=== PATIENT | female | born 1995 | race Caucasian/White ===

== ENCOUNTER 2020-03-10 18:31 | Emergency (ER) | payer OTHER, SELFPAY ==
[2020-03-10 18:39] VITALS: BP 122/67; PULSE 78; RESP 17; TEMP 36.8; O2SAT 100; BMI 19.5
--- NOTE | 2020-03-10 18:44 | CT_ITS ---
PROCEDURE: CT ABDOMEN PELVIS W CON CLINICAL INDICATION: abd pain Constipation, generalized abdominal pain COMPARISON: No exams were available for comparison TECHNIQUE: IV Contrast: 75ML OPTIRAY 350 Oral Contrast None Axial images obtained with sagittal and coronal reformats. All CT scans at the facility use one or more dose reduction, viz: automated exposure control, ma/kV adjustment per patient size (including targeted exams where dose is matched to indication, i.e. head), or iterative reconstruction technique. FINDINGS: LOWER THORAX: Minimal nodular thickening noted within the left lower lobe anteriorly possibly due to some underlying scarring. Stability may be confirmed with follow-up. ABDOMEN & PELVIS: The liver, spleen, adrenal glands, pancreas, and gallbladder and kidneys have an unremarkable appearance. No intestinal obstruction or free air. Nonspecific nonobstructive bowel gas pattern. No evidence of appendicitis intestinal obstruction free air or diverticulitis. There is a small amount of free fluid in the cul-de-sac. Nondistended fluid-filled loops of small bowel are noted which are nonspecific. Multiple unopacified bowel loops in the abdomen or pelvis which could obscure or mimic pathology. If symptoms persist, consider repeat exam with IV and oral contrast. Irregular crenulated peripheral enhancing density noted in the left adnexa may be due to a ruptured cyst at 16 mm. There is a mild amount of retained colonic feces.. No acute bony anomaly. IMPRESSION: 1. Constipation. 2. Multiple unopacified bowel loops in the abdomen or pelvis which could obscure or mimic pathology. If symptoms persist, consider repeat exam with IV and oral contrast. 3. A left ovarian cyst with small amount fluid in cul-de-sac. Possibly related to ruptured cyst. Dictated by: Kurt Pena MD 03/11/2020 12:53 Kurt Pena MD in [place] 03/11/2020 12:53
--- NOTE | 2020-03-10 18:53 | [facility].EDGENADL ---
ED Disposition Clinical Impression: Abdominal spasms Abdominal pain Qualifiers: Abdominal location: epigastric Qualified Code(s): R10.13 - Epigastric pain Disposition: Still a Patient Condition on Discharge: Good Prescriptions: Dicyclomine HCl [Bentyl 10mg capsule] 10 mg PO QID PRN #20 cap PRN Reason: Cramping Transmission Status: Received by [facility] #[id number] Sennosides/Docusate Sodium [Docusate Sodium-Senna Tablet] 1 each PO DAILY #10 tab Transmission Status: Received by [facility] #[id number] polyethylene glycoL 3350 [Miralax 17gm Packet] 17 gm PO DAILYP PRN #30 packet PRN Reason: Constipation Transmission Status: Received by [facility] #[id number] Referrals: Rigoberto Adkins MD [Primary Care Provider] - - Critical Care Critical Care Time: No Attestation: On , the high probability of a clinically significant, sudden or life threatening deterioration of the following system(s) required my full and direct attention, intervention and personal management. The time I documented below is in addition to time spent performing reported procedures but includes the following listed in this critical care notation. Medical Decision Making - Medical Records Medical records reviewed: Yes: I reviewed the patient's medical records. - Lobo Inquiry Pt receiving controlled substance: No Vital Signs: 03/10/20 18:39 Temperature 98.2 F Temperature Source Oral Pulse Rate [Right Radial] 78 Respiratory Rate 17 Blood Pressure [Right Arm] 122/67 Blood Pressure Mean [Right Arm] 85 02 Sat by Pulse Oximetry 100 Oxygen Delivery Method Room Air - Lab Data Lab Results 03/10/20 18:48: WBC 8.9, RBC 4.37, Hgb 14.4, Hct 41.2, MCV 94.1, MCH 32.9 H, MCHC 34.9, RDW 12.8, Plt Count 263, MPV 7.4, Neut % (Auto) 64.9, Lymph % (Auto) 29.3, Lee % (Auto) 4.6, Eos % (Auto) 0.7, Baso % (Auto) 0.6, Neut # (Auto) 5.8, Lymph # (Auto) 2.6, Lee # (Auto) 0.4, Eos # (Auto) 0.1, Baso # (Auto) 0.1 03/10/20 18:48: Urine HCG, Qual Negative 03/10/20 18:48: Sodium 138, Potassium 3.8, Chloride 101, Carbon Dioxide 27, Anion Gap 13.8, BUN 17, Creatinine 0.70, Estimated Creat Clear 87, Estimated GFR 101, Est GFR ( Amer) 122, Glucose 89, Calcium 10.4 H, Total Bilirubin 0.9, AST 26, ALT 12, Alkaline Phosphatase 56, Total Protein 8.5 H, Albumin 5.1 H, Globulin 3.4 H, Albumin/Globulin Ratio 1.5, Amylase 65, Lipase 75 03/10/20 18:49: Urine Color Yellow, Urine Appearance Clear, Urine pH 6.0, Ur Specific [place] 1.025, Urine Protein Negative, Urine Glucose (UA) Negative, Urine Ketones 1+, Urine Blood Negative, Urine Nitrate Negative, Urine Bilirubin Negative, Urine Urobilinogen 0.2, Ur Leukocyte Esterase Negative, Urine RBC Occasional, Urine WBC 5-10, Ur Squamous Epith Cells 5-10, Urine Bacteria 2+ Result diagrams: 03/10/20 18:48 03/10/20 18:48 Orders (Tests/Meds): ED MEDICATIONS Generic Name Dose Route Start Last Admin Trade Name Freq PRN Reason Stop Dose Admin Senna/Docusate Sodium 1 tab 03/10/20 20:19 Senokot-S Tablet PO 03/10/20 20:20 ONCE ONE Discontinued Medications Generic Name Dose Route Start Last Admin Trade Name Freq PRN Reason Stop Dose Admin Ioversol 75 ml 03/10/20 20:11 03/10/20 20:12 Rad-Optiray 350 100ml Vial IV 03/10/20 20:12 75 ml ONCE ONE Administration Protocol Sodium Chloride 100 ml 03/10/20 20:11 03/10/20 20:11 Rad-Sod Chloride 0.9% 250ml IV 03/10/20 20:12 100 ml ONCE ONE Administration ORDERS Category Date Time Status CT abdomen pelvis w con Stat Cat Scan 03/10/20 18:44 Taken Urine Culture Stat Micro 03/10/20 18:49 Received Medical Decision Narrative: In summary this is a 25-year-old female presenting to the emergency department with midepigastric abdominal pain and constipation. She is clinically stable on arrival. Vital signs within normal limits. Will obtain CBC, CMP, lipase, test, urinalysis, CT scan of the abdomen a
[2020-03-10 18:55] LABS: Microscopic, Urine URINE MICROSCOPIC (MICROSCOPIC)
[2020-03-10 18:58] LABS: Appearance,Urine CLEAR (Clear); Bilirubin,Urine Negative (Negative); Blood, Urine Negative (Negative); Color,Urine YELLOW (Yellow); Glucose,Urine (UA) Negative (Negative); Ketones,Urine 1+ (Negative); Leukocyte Esterase,Urine Negative (Negative); Nitrate,Urine Negative (Negative); Protein,Urine Negative (Negative); Specific Gravity, Urine 1.025 (1.005-1.030); Urobilinogen,Urine 0.2 EU/dl (0.2)
[2020-03-10 19:00] VITALS: BP 102/55; PULSE 78; RESP 17; O2SAT 99
[2020-03-10 19:00] LABS: Basophils # 0.1 K/mm3 (0-0.2); Basophils % 0.6 % (0.1-2.0); Eosinophils # 0.1 K/mm3 (0.0-0.4); Eosinophils % 0.7 % (0.1-12.0); Hematocrit 41.2 % (37.0-47.0); Hemoglobin 14.4 g/dL (12.2-16.2); Lymphocytes # 2.6 K/mm3 (0.7-4.5); Lymphocytes % 29.3 % (10-50); Mean Corpuscular HGB Conc 34.9 g/dL (31.8-35.4); Mean Corpuscular Hemoglobin 32.9 pg (27.0-31.2); Mean Corpuscular Volume 94.1 fl (81-99); Mean Platelet Volume 7.4 fl (7.4-10.4); Monocytes # 0.4 K/mm3 (0.1-1.0); Monocytes % 4.6 % (1.7-9.3); Neutrophils # 5.8 K/mm3 (1.8-7.8); Neutrophils % 64.9 % (37.0-80.0); Platelet Count 263 K/mm3 (142-424); Red Blood Count 4.37 M/mm3 (4.20-5.40); Red Cell Distribution Width 12.8 % (11.5-17.5); White Blood Count 8.9 K/mm3 (4.8-10.8)
[2020-03-10 19:01] LABS: Urine Pregnancy, HCG Qual. Negative (Negative)
[2020-03-10 19:07] LABS: Alanine Aminotransferase 12 U/L (12-78); Albumin Level 5.1 g/dl (3.5-5.0); Albumin/Globulin Ratio 1.5 (1.1-1.8); Alkaline Phosphatase 56 U/L (38-126); Amylase 65 U/L (30-110); Anion Gap 13.8 mEq/L (5-15); Aspartate Amino Transferase 26 U/L (14-36); Bilirubin,Total 0.9 mg/dl (0.2-1.3); Blood Urea Nitrogen 17 mg/dl (7-17); Calcium 10.4 mg/dl (8.4-10.2); Carbon Dioxide 27 mmol/L (22.0-30.0); Chloride 101 mmol/L (98-107); Creatinine Clearance Estimated 87 mL/min (50-200); Estimated Glomerular Filt Rate 101 ml/min (>60); GFR (African American) 122 ML/MIN (>60); Globulin 3.4 g/dL (1.3-3.2); Glucose 89 mg/dl (74-100); Lipase 75 U/L (23-300); Potassium 3.8 mmoL/L (3.5-5.1); Sodium 138 mmol/L (136-145); Total Protein,Serum 8.5 g/dl (6.3-8.2)
[2020-03-10 19:19] LABS: Bacteria,Urine 2+ /lpf; RBC,Urine Occasional #/hpf (0-3)
[2020-03-10 19:30] VITALS: BP 107/54; PULSE 75; RESP 17; O2SAT 99
[2020-03-10 20:00] VITALS: BP 109/53; PULSE 71; RESP 18; O2SAT 100
--- NOTE | 2020-03-10 20:04 | PC.NURSE ---
back to room from ct
[2020-03-10 20:30] VITALS: BP 110/59; PULSE 78; RESP 17; O2SAT 100
[2020-03-10 20:46] VITALS: BP 142/92; PULSE 78; RESP 16; TEMP 36.8; O2SAT 98
[2020-03-10 21:14] LABS: T4 (Thyroxine) 10.2 ug/dl (5.53-11.0)
[2020-03-10 21:27] LABS: Thyroid Stimulating Hormone 0.91 uIU/mL (0.465-4.68)
== END 2020-03-10 21:04 | disposition still patient (30) ==
PROVIDERS: Emergency Medicine; Emergency Provider Emergency Medicine; PCP Internal Medicine Adolescent Medicine
DX: R10.13 Epigastric pain (principal); M62.838 Other muscle spasm; K59.00 Constipation, unspecified
CPT/HCPCS: 74177; 80053; 81001; 81025; 82150; 83690; 84436; 84443; 85025; 87086; 99283; Q9967